=== PATIENT | male | born 1995 | race African-American/Black ===

== ENCOUNTER 2020-12-17 23:13 | Emergency (ER) | payer BC ==
[~2020-12-17] VITALS: Ht 188 cm; Wt 99.8 kg
--- NOTE | ~2020-12-17 | EMS ---
[place] [address] EMS Patient Care Report Name: LUZ ARAUZ Room #: DEP HARPREET Mcguire#: [id number] Admission: 12/17/20 Attend Phys: Discharge: 12/18/20 Date of : [birth year] Report #: [id number] THIS REPORT FOR: //name// Report Transmitted: 12/20/2020 10:19 EMS Care Summary [place], [place]/[facility] Incident [id number] @ 12/17/2020 22:27 [address]ident [address] [place] [address] Patient LUZ ARAUZ Male, 25 Years 1995 Patient [address] [place] [address] Patient History Hypertension (HTN),Anxiety,Post Traumatic Stress Disorder (PTSD), Patient Allergies No known allergies, Patient Medications Unknown, Chief Complaint CP Disposition Transported No Lights/[place] Dispatch Reason Sick Person Transported To [facility] Narrative Upon arrival PT was in the upright sitting position on floor of hallway. PT had a CC of CP with onset time of 10 min prior to calling EMS. PT was assisted from floor and to stretcher, then taken to back of ambulance for further medical evaluation and intervention. PT was then [place] [address] EMS Patient Care Report Name: LUZ ARAUZ Room #: DEP ER SiomaraVicky#: [id number] Admission: 12/17/20 Attend Phys: Discharge: 12/18/20 Date of : [birth year] Report #: [id number] while en route to hospital. Initial Vitals @22:51P: 105,CO: 4,SpO2: 97, @22:55P: 100,R: 18,BP: 139/101,Pain: 4/10,GCS: 15,SpO2: 99,Revised Trauma: 12, @22:47P: 112,R: 18,BP: 114/88,Pain: 10/10,GCS: 15,CO: 8,SpO2: 98,Revised Trauma: 12, Assessments @22:41MENTAL:No Abnormalities,SKIN:No Abnormalities,HEENT:Head/Face: No Abnormalities,Eyes: No Abnormalities,Neck/Airway: No Abnormalities,LUNG SOUNDS:General: No Abnormalities,Left Upper: No Abnormalities,Right Upper: No Abnormalities,Left Lower: No Abnormalities,Right Lower: No Abnormalities,ABDOMEN:General: No Abnormalities,Left Upper: No Abnormalities,Right Upper: No Abnormalities,Left Lower: No Abnormalities,Right Lower: No Abnormalities,PELVIS//GI:No Abnormalities,EXTREMITIES:Capillary Refill: Right Upper: < 2 Sec,Capillary Refill: Left Upper: < 2 Sec,PULSE:Radial: 2+ Normal,NEURO:No Abnormalities, Impression Chest Pain / Discomfort Procedures @22:4812-Lead ECGResponse: UnchangedSucceeded@22:41ALS AssessmentResponse: UnchangedSucceeded@23:04Aspirin - - @23:04 cc () Timeline 22:25,Call Received 22:25,Dispatch Notified 22:27,Dispatched 22:28,En Route 22:40,On Scene 22:41,At Patient 22:41,ALS Assessment,Response: UnchangedSucceeded, 22:47,BP: 114/88 M,PULSE: 112,RR: 18 R,SPO2: 98 Ox,ETCO2: ,BG: ,PAIN: 10,GCS: 15, 22:48,12-Lead ECG,Response: UnchangedSucceeded, 22:51,BP: / M,PULSE: 105,RR: R,SPO2: 97 Ox,ETCO2: ,BG: ,PAIN: ,GCS: , 22:55,BP: 139/101 M,PULSE: 100,RR: 18 R,SPO2: 99 Ox,ETCO2: ,BG: ,PAIN: 4,GCS: 15, 22:59,Depart Scene 23:04,Aspirin - - , 23:04, cc Site: , 23:11,At Destination 23:22,Call Closed [address] [address] EMS Patient Care Report Name: LUZ ARAUZ Room #: DEP HARPREET Mcguire#: [id number] Admission: 12/17/20 Attend Phys: Discharge: 12/18/20 Date of : [birth year] Report #: [id number] Disclaimer [email or web address] Copyright 2020 [employer] This EMS Care Summary contains data elements from the applicable legal record (which may be displayed differently). It is designed to provide pertinent information for the following purposes: continuity of care, clinical quality, and state data reporting. The complete legal record is available to ED staff and administrators of the receiving hospital in [facility]'s Patient Tracker. All data is provided "as is."
[2020-12-17] MEDS ORDERED: COZAAR 25 MG TA25 M1 PO (23:37)
[2020-12-17] MEDS ORDERED: ZOLOFT50 M1 PO (23:38)
[2020-12-17] MEDS ORDERED: PRAZOSIN HCL5 MG PO (23:38)
[2020-12-18 00:17] LABS: ABSOLUTE NEUTROPHILS 1.9 thou/uL (1.4-8.2); BASOPHILS 1.4 % (0.0-2.0); EOSINOPHILS 8.2 % (0.0-3.0); HEMOGLOBIN 13.6 gm/dL (14.0-18.0); LYMPHOCYTES 44.4 % (24.0-44.0); MCH 26.6 pg (26.0-34.0); MCHC 32.4 g/dL (28.0-37.0); MCV 81.9 fL (80.0-100.0); PLATELET COUNT 279 thou/uL (150-400); RBC 5.13 mil/uL (4.50-6.00); RDW 15.3 % (10.5-14.5); WBC 5.6 thou/uL (4.0-11.0)
[2020-12-18 00:19] LABS: ANION GAP 13 mmol/L (7-16); BUN 10 mg/dL (7-18); CALCIUM 8.7 mg/dL (8.5-10.1); CHLORIDE 105 mmol/L (98-107); CO2 22 mmol/L (21-32); GLUCOSE 111 mg/dL (74-106); SODIUM 140 mmol/L (136-145)
[2020-12-18 00:25] LABS: POTASSIUM 4.3 mmol/L (3.5-5.1)
[2020-12-18 00:30] LABS: ALBUMIN 3.7 g/dL (3.4-5.0); LIPASE 156 U/L (73-393); SGOT 93 U/L (15-37); SGPT 98 U/L (16-63); TOTAL BILIRUBIN 0.3 mg/dL (0.2-1.0); TOTAL PROTEIN 7.9 g/dL (6.4-8.2)
[2020-12-18] MEDS ORDERED: PEPCID20 MG PO (02:36)
[2020-12-18 02:48] VITALS: BP 110/67
--- NOTE | 2020-12-18 09:16 | EKG ---
[address] [place] [address] ELECTROCARDIOGRAM REPORT Name: LUZ ARAUZ [id number] Admission: 12/17/20 Attend Phys: Discharge: 12/18/20 Date of : [birth year] Report #: [id number] [facility] ED Test Date: 2020-12-18 Test Time: 00:09:49 Pat Name: LUZ ARAUZ Department: Room: Gender: C Application Developer: : 1995 Requested By: Carmela Burgos Order Number: [id number] MD: Trevon Bowman Measurements Intervals [place] Rate: 92 P: 37 GA: 163 QRS: 12 QRSD: 86 T: 21 QT: 350 QTc: 433 Interpretive Statements Sinus rhythm Probable left atrial enlargement RSR' in V1 or V2, probably normal variant Probable left ventricular hypertrophy No previous ECG available for comparison Electronically Signed On 12-18-2020 9:16:44 CDT by Trevon Bowman [email or web address] <ELECTRONICALLY SIGNED> By: Trevon Bowman MD, [facility] 12/18/20 0916 [id number] Trevon Bowman MD, FACC /EPI
== END 2020-12-18 02:48 | disposition home or self-care (01) ==
LOC: ER 23:13
PROVIDERS: Emergency Medicine
DX: R07.89 Other chest pain (principal); R74.8 Abnormal levels of other serum enzymes; Z79.899 Other long term (current) drug therapy